=== PATIENT | female | born 1950 | race Caucasian/White ===

== ENCOUNTER → 2016-03-15 | Day surgery (SDC) | payer OTHER ==
[~2016-03-15] VITALS: Ht 157.5 cm; Wt 74.8 kg
[~2016-03-15] MED LIST: FLONASE ALLERG9.9 ML; VESICARE10 MG PO
--- NOTE | 2016-03-20 11:48 | Operative Report ---
Operative/Inv Procedure Report Surgery Date: 03/15/16 Name of Procedure: urethral sling, cystoscopy Pre-Operative Diagnosis: stress incontinence Post-Operative Diagnosis: same Estimated Blood Loss: less than 50ml Surgeon/Housing Liaison: PATRICIO CHILEL MD Anesthesia: local monitored anesthesi Implants: vaginal mesh Complications: none Condition: stable Operative Indication: stress incontinence Operative/Procedure Note Note: 65yo female with a hx of stress incontinence. She was given the risks, benefits and alternatives of urethral sling. She wished to proceed. All questions were answered. consent was signed. She was taken to the operating room and placed on the operating room table in the supine position. Time out was performed and 1% lidocaine was infiltrated into the vaginal wall suburethrally. An incision was made suburethrally. The vaginal flaps were created taking care not to injure the urethra. The Coloplast sling kit was opened. The sling was placed in the obturator fascia without difficulty. It was tightened to sit in a tension free manner suburethrally accomodating debakey forceps easily. The prolene tightening loop was cut. The incision was closed after bacitracin irrigation with 3-0 vicryl running locking suture. There was no mesh in the vaginal fornices. A cystocopy was performed at this time. The bladder was globally inspected and there were no defects and ureters were in their normal anatomic position. There was no mesh in the bladder or urethra. THe bladder was emptied. Vaginal packing with bacitracin was placed into the vaginal vault. The sponge and needle count were correct at the end of the case. THe patient tolerated the procedure well. Findings: no mesh in bladder, urethra or vaginal fornices. Discharge Disposition: PACU
== END ==
LOC: STS 02:01
DX: N39.3 Stress incontinence (female) (male) (principal); I65.29 Occlusion and stenosis of unspecified carotid artery; E78.00 Pure hypercholesterolemia, unspecified; E04.1 Nontoxic single thyroid nodule; M79.1 Myalgia
CPT/HCPCS: C1771; J0131; J0690; J2250